=== PATIENT | male | born 1995 | race Caucasian/White ===

== ENCOUNTER 2024-12-20 20:22 | Emergency (ER) | payer SELFPAY ==
[2024-12-20] MEDS: diphenhydrAMINE 50 MG/ML SDV IVPUSH ONE (20:24)
[2024-12-20] MEDS: methylPREDNISolone Sodium Succinate 125 MG/2 ML SDV IVPUSH ONE (20:26)
== END 2024-12-20 22:26 | disposition home or self-care (01) ==
LOC: JP.ED 20:22
DX: T78.1XXA Other adverse food reactions, not elsewhere classified, initial encounter (principal); Z91.018 Allergy to other foods; Z79.899 Other long term (current) drug therapy
CPT/HCPCS: 96374; 96375; 99284; J1200; J2919